=== PATIENT | male | born 1945 | race Caucasian/White ===

== ENCOUNTER 2024-03-19 20:53 | Emergency (ER) | payer MEDICARE, OTHER ==
[~2024-03-19] VITALS: Ht 167.6 cm; Wt 68.0 kg
[2024-03-19 21:11] VITALS: BP 126/57; TEMP 98.4; O2SAT 99
== END 2024-03-19 21:21 | disposition home or self-care (01) ==
LOC: ER 20:56
DX: Z13.9 Encounter for screening, unspecified (principal)